=== PATIENT | male | born 1960 | race Caucasian/White ===

== ENCOUNTER → 2017-01-25 | Outpatient (CLI) | payer MEDICARE, MEDICAID ==
[~2017-01-25] MED LIST: AMLODIPINE10 MG PO; CYCLOBENZAPRINE10 M2 OR; GABAPENTIN 100100 MG GT; HYDROCODONE-APA1 TA1 PO; LOPID 600MG TA600 MG PO; METFORMIN ER500 M1 PO; NADOLOL 20 MG T20 MG PO; TESSALON PERLE200 MG PO; ULTRAM50 MG PO
[2017-01-25 14:40] LABS: HEMOGLOBIN 15.7 g/dL (14.1-18.0); LYMPH # 2.4 K/mm3 (0.7-4.5); LYMPH % 33.5 % (10-50)
[2017-01-25 16:37] LABS: BUN 12 mg/dL (7-18)
[2017-01-25 16:38] LABS: GFR (ESTIMATED) 87 ML/MIN (>60)
== END ==
LOC: LAB 14:07
PROVIDERS: Emergency Medicine
DX: E78.5 Hyperlipidemia, unspecified (principal); E11.9 Type 2 diabetes mellitus without complications; I10 Essential (primary) hypertension

== ENCOUNTER → 2017-05-17 | Outpatient (CLI) | payer MEDICARE, MEDICAID ==
[2017-05-17 16:50] LABS: BUN 9 mg/dL (7-18)
[2017-05-17 16:51] LABS: GFR (ESTIMATED) 87 ML/MIN (>60)
== END ==
LOC: LAB 13:48 → RT 13:48
PROVIDERS: Surgery
DX: D48.5 Neoplasm of uncertain behavior of skin (principal); Z01.818 Encounter for other preprocedural examination